=== PATIENT | male | born 1990 | race Caucasian/White ===

== ENCOUNTER 2018-03-29 12:41 | Day surgery (SDC) | payer OTHER ==
[~2018-03-29] VITALS: Ht 182.9 cm; Wt 122.5 kg
[~2018-03-29 12:41] MED LIST: ACET-1966 PO; MULT-1335 PO
[2018-03-29] MEDS: NORMOSOL R SOLN(*) 1000 ML BAG 1,000 ML IV PRN ×2 (12:47→15:20)
[2018-03-29 12:55] VITALS: BP 133/80
[2018-03-29] MEDS ORDERED: ROPIVACAINE 0.2% 20 ML VIAL ONE (13:30)
[2018-03-29] MEDS ORDERED: ROPIVACAINE 0.5% 20 ML VIAL ONE (13:36)
[2018-03-29] MEDS ORDERED: DEXAMETHASONE SOD PHOS 10MG/ML ONE (13:38)
[2018-03-29] MEDS ORDERED: LIDOCAINE 2% IV 100 MG/5ML SYR ONE (13:41)
[2018-03-29] MEDS ORDERED: fentaNYL CITR 250 MCG/5 ML AMP ONE (13:41)
[2018-03-29] MEDS ORDERED: PROPOFOL EMUL(*) 10MG/ML 20 ML 20 ML ONE (13:42)
[2018-03-29] MEDS ORDERED: ceFAZolin(*) 2GM/D5W 50ML 50 ML IVPB ONE (14:00)
[2018-03-29] MEDS ORDERED: LIDOCAINE/SOD BICARB 8.4% SYR ID ONE (14:00)
[2018-03-29] MEDS ORDERED: CELECOXIB 200 MG CAP PO ONE (14:00)
[2018-03-29] MEDS ORDERED: FAMOTIDINE 20 MG TAB PO ONE (14:00)
[2018-03-29] MEDS ORDERED: MIDAZOLAM 2 MG/2 ML VIAL IVP PRN (14:00)
[2018-03-29] MEDS ORDERED: KETOROLAC 30 MG/ML VIAL ONE (15:35)
[2018-03-29] MEDS ORDERED: ONDANSETRON 4 MG/2 ML VIAL ONE (15:35)
[2018-03-29] MEDS ORDERED: fentaNYL CITR 100 MCG/2 ML AMP ONE ×4 (16:40→18:21)
[2018-03-29] MEDS ORDERED: MEPERIDINE 50 MG/ML SYR ONE (18:08)
[2018-03-29] MEDS ORDERED: KET10 PO ×2 (18:29→18:43)
[2018-03-29] MEDS ORDERED: ACET500T68 PO (18:29)
[2018-03-29] MEDS ORDERED: oxyCODONE HCL 5 MG CAP ONE (18:38)
[2018-03-29] MEDS ORDERED: OXYC5CAP21 PO (18:40)
[2018-03-29] MEDS ORDERED: PROMETHAZINE 25 MG/ML 1 ML AMP ONE (18:41)
[2018-03-29 19:30] VITALS: BP 129/81
[2018-03-29 19:43] VITALS: BP 126/84
[2018-03-29 19:46] VITALS: BP 127/72
[2018-03-29] MEDS ORDERED: ACETAMINOPHEN 500 MG TAB ONE (20:41)
--- NOTE | 2018-03-30 12:11 | OPERATIVE REPORT 1 ---
EVENT DATE: March 29, 2018 SURGEON: Quang Anne MD ANESTHESIOLOGIST: Jose Luis Dempsey MD ANESTHESIA: Right femoral block followed by general. BIODIESEL PROCESSING TECHNICIAN: CLEO Aj PREOPERATIVE DIAGNOSIS Right knee high-grade tear of the anterior cruciate ligament and possible meniscal pathology. POSTOPERATIVE DIAGNOSIS Right knee high-grade tear of the anterior cruciate ligament and undersurface tear of the posterior third of the lateral meniscus. PROCEDURE PERFORMED Right knee arthroscopy with debridement of lateral meniscus followed by repair, anatomic arthroscopic assisted anterior cruciate ligament reconstruction of hamstring autograft. ESTIMATED BLOOD LOSS Less than 5 mL. SPECIMENS None. COMPLICATIONS None. IMPLANTS USED One Leija and Nephew 15 mm EndoButton and one Intrafix sheath and 8-10 mm screw and two Leija and NephViibar 360 FasT fixation devices. DESCRIPTION OF PROCEDURE The patient was brought to the OR after receiving appropriate antibiotic, where Dr. Dempsey performed right femoral nerve block followed by general anesthesia. We then evaluated the knee. Again, we noted grade 1 to 1+ anterior drawer. He had an endpoint Simba's that was slightly greater than the translation seen on the opposite extremity. Right thigh tourniquet was placed. The right lower extremity was prepped and draped in the usual sterile fashion. The limb was exsanguinated and tourniquet inflated to 250 mmHg. We established a lateral portal and then under arthroscopic visualization established medial portal. We noted in the notch that the anterior medial bundle had torn and there was only a small portion of posterior lateral bundle that was still attached. We easily were able to peel this off the wall. We then entered the medial compartment. The articular cartilage was intact as was the meniscus and was stable to probing. There was no evidence of injury. Medial gutter, suprapatellar pouch and lateral gutter showed no loose bodies. Patellofemoral joint showed intact articular cartilage. It should be noted as we were going through the joint there was fairly significant scarring from the previous surgery anteriorly. This was partially debrided for visualization. We entered the lateral compartment and noted a lateral meniscus tear and the previous debridement centrally but there was a thickening of the meniscus posteriorly in the posterior third and an undersurface tear in the red-red zone. The meniscus was debrided down to a stable base utilizing rasp to roughen tissues and we trephinated this with a spinal needle. We then placed two 360 FasT suturing devices in horizontal fashion to fixate the meniscus. It was stable to probing. We removed the instrumentation and went to the graft harvest. We made a 4 cm incision, one 3 cm inferior to the medial tibial plateau and 1 cm medial to the tibial tubercle. Sharp dissection was carried through the skin and subcutaneous tissue down to the level of the sartorius fascia, which had bluntly overmined with the [employer]. We identified the superior border of the gracilis and just above this made a transverse incision in the sartorius fascia bringing this to the tubercle and then proceeding inferiorly to create an L flap within the sartorius fascia, which was sharply taken off the two tendons. I identified and released the gracilis tendon, tied with 0 Vicryl suture, removed adhesions and harvested with the closed end harvester in standard fashion. It was taken to the back table. In similar fashion, the semi- tendinosis tendon was harvested. The registered nurse first assistant went back to cut the graft. I went back to the arthroscopic portion of the procedure. The scope was reinserted and through the medial portal we instrumented and performed notchplasty starting with debridement of the ACL down to stable base and then utilizing the shaver Serfas device and bur, creating space and identified the posterior wall. We then utilized the intramedullary tibial guide to set up for our tibial tunnel. The graft quadrupled was 8.5 mm. We set the entrance point up just anterior to the posterior aspect of the anterior horn of the lateral meniscus and a central medial on the footprint. This was 55 degrees, 10 degrees from vertical, and a 50 mm tunnel length. We drove our guide pin and once we had satisfactory placement we then reamed the tunnel with 8.5 mm full bore reamer, dilated the tunnel to 8.5 mm and noted no impingement in full extension with the dilator in the notch. We then dilated this with the Intrafix dilator. We placed a plug and went to the femoral aspect. Through the inferior medial portal, we placed our guide and marked on the wall with the knee bent at 90 degrees at approximately 10 o'clock. We then hyperflexed the knee and utilizing a 6 mm anatomic femoral osteotomy guide, referencing off the posterior wall and our previous thi, we drilled our guide pin. We reamed this to a depth of 32 mm. We then utilized the EndoButton reamer to broach the lateral cortex. The total length was 38 mm. We chose a 15 mm EndoButton. We debrided the tunnel with the shaver, dilated to 8.5 mm and noted the lateral cortex was still intact and passed our passing suture. We marked the graft at 38 and 48 mm. We passed the graft, put the EndoButton at 48 mm. Distal traction showed it at 38 mm and there was no more toggle at this point. We then tied each of the respective suture ends to itself at 4.5 inches. With minimal traction distally, we cycled the knee from 0-90 degrees and noted no significant asymmetry. I then placed the Intrafix tensioner and cycled the knee three times from 0 to 90 degrees with 20-25 pounds retention. The knee was then placed in approximately 5-10 degrees of flexion with the posterior english drawer neutral position. We dilated the tunnel with IntraFix dilator, placed our sheath and an 8-10 cm screw with good purchase. At 30 degrees and 90 degrees, the Simba's anterior drawer were solid. Visualizing from 90 to 0 degrees arthroscopically, there was equal tension and no impingement. The joint and graft harvest site were irrigated. The graft harvest site was injected with approximately 10 mL ropivacaine followed by closure of sartorius fascia with 2- 0 Vicryl, 2-0 of subcutaneous tissue and Monocryl for portals and skin. We cleaned the wounds, applied Steri-strips and injected these areas with ropivacaine followed by compressive dressing. The patient was extubated and taken to recovery in stable condition. Tylenol, Toradol and OxyIR were recommended. He will be weightbearing as tolerated in T-Scope brace with crutches. We will see him this coming Thursday, in two days, in our [facility] for wound check. NARCISA
== END 2018-03-29 19:20 | disposition home or self-care (01) ==
LOC: OR 12:41
PROVIDERS: ATTEND Orthopaedic Surgery
DX: S83.511A Sprain of anterior cruciate ligament of right knee, initial encounter (principal); S83.281A Other tear of lateral meniscus, current injury, right knee, initial encounter
CPT/HCPCS: 29881; 29888; 76942; C1713; J1100; J1885; J2001; J2175; J2250; J2405; J2550; J2704; J2795; J3010; J0690